=== PATIENT | female | born 1965 | race Caucasian/White ===

== ENCOUNTER 2023-10-04 06:35 | Emergency (ER) | payer OTHER ==
[~2023-10-04] VITALS: Ht 162.6 cm; Wt 70.0 kg
[2023-10-04] MEDS ORDERED: KETOROLAC TROMETHAMINE 60 MG/2 ML VIAL IM ONE (07:00)
[2023-10-04 07:43] VITALS: BP 126/74
--- OUTSIDE RECORDS SUMMARY | 2023-10-04 08:18 | XMS ---
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 EAllen VISIT COUNT (12 MO.) [address] [place] [address] TOTAL 2 NOTE: Visits indicate total known visits. ED/UCC VISIT TRACKING (12 MO.) 10/04/2023 06:36 SUZANNE Neely TYPE: Emergency COMPLAINT: - R KNEE PAIN 09/17/2023 09:27 [facility] TYPE: Emergency DIAGNOSES: - Dehydration - Hematuria, unspecified - Nausea with vomiting, unspecified - Syncope and collapse - Unspecified abdominal pain INPATIENT VISIT TRACKING (12 MO.) No inpatient visits to display in this time frame [email or web address]
== END 2023-10-04 07:42 | disposition home or self-care (01) ==
LOC: ED 06:35
DX: S83.91XA Sprain of unspecified site of right knee, initial encounter (principal); M17.11 Unilateral primary osteoarthritis, right knee; X58.XXXA Exposure to other specified factors, initial encounter
CPT/HCPCS: 73560; 96372; 99283-25; J1885